=== PATIENT | female | born 1945 | race Caucasian/White ===

== ENCOUNTER 2016-08-25 21:49 | Emergency (ER) | payer MEDICARE ==
[~2016-08-25] VITALS: Ht 162.6 cm; Wt 70.0 kg
[~2016-08-25 21:49] MED LIST: ASPI81CH30 PO; COZA100T PO; FERR325T PO; FOLI1TAB PO; GLIM2 PO; GLUCTAB PO; MEVA40TA6 PO; NORV2.5T11 PO; OMEG600C2 PO; PYRI25TA9 PO; TAB-TAB PO; TRAD5TAB PO; VITA100T15 PO
[2016-08-25 21:50] VITALS: BP 256/118; PULSE 76; RESP 20; TEMP 98.5; O2SAT 99
[2016-08-25 22:18] VITALS: BP 232/110; PULSE 78; RESP 18; TEMP 98.1; O2SAT 99
[2016-08-25] MEDS ORDERED: KETOROLAC TROMETHAMINE 30 MG/ML (IVP) VIAL IV PUSH ONE (22:30)
[2016-08-25] MEDS ORDERED: SODIUM CHLORIDE 0.9% FLUSH 10 ML FLUSH IVF PRN (22:30)
[2016-08-25 22:31] VITALS: RESP 18; O2SAT 99
--- NOTE | 2016-08-25 22:36 | PD ---
HPI Chief Complaint: Hypertension Time Seen by Provider: 22:26 Travel History International Travel<30 days: No Contact w/Intl Traveler<30days: No Traveled to known affect area: No History of Present Illness HPI 71 y/o female presents with elevated blood pressure this evening. She states it was in the 200s over 100s at home when she checked it. She states she checked it can she had a frontal headache. She states she's had this before when her blood pressure gets elevated. She states she was taken off her losartan and Norvasc because after her carotid surgery in July of this year her blood pressure actually went to low. She states just yesterday she checked her blood pressure and it was normal on her metoprolol only. She states her systolic was in the 110 range. She states that she has no other concurrent complaints at this time including numbness, chest pain, shortness breath or other acute concerns. She denies thunderclap onset of headache. PFSH Past Medical History Anxiety: Yes High Cholesterol: Yes Diabetes: Yes Patient Takes Glucophage: No Diminished Hearing: No Hypertension: Yes Tetanus Vaccination: < 5 Years Influenza Vaccination: No Menopausal: Yes Past Surgical History Cardiac Surgery: Yes Hysterectomy: Yes Other Surgery: Yes (carotid endarectomy) Social History Alcohol Use: No Tobacco Use: No Substance Use: No Allergies-Medications (Allergen,Severity, Reaction): Coded Allergies: Ancef (Verified Allergy, Severe, 08/25/16) Cardizem (Verified Allergy, Severe, 08/25/16) Contrast Media (Verified Allergy, Severe, 08/25/16) Vancomycin (Verified Allergy, Severe, 08/25/16) Reported Meds & Prescriptions Reported Meds & Active Scripts Active Reported Aspir-Low (Aspirin) 81 Mg Tabdr 81 Mg PO DAILY @ 1300 B-12 (Cyanocobalamin) 1,000 Mcg Cap 1,000 Mcg PO DAILY Ferrous Sulfate 325 Mg Tab 325 Mg PO DAILY Glimepiride 2 Mg Tab 2 Mg PO AC DINNER Take with breakfast or first main meal Glimepiride 4 Mg Tab 4 Mg PO AC BREAKFAST Take with breakfast or first main meal Pyridoxine (Pyridoxine HCl) 100 Mg Tab 100 Mg PO DAILY Plavix (Clopidogrel Bisulfate) 75 Mg Tab 75 Mg PO DAILY @ 1300 D 1000 (Cholecalciferol) 1,000 Unit Tab 3,000 Units PO DAILY Coq-10 (Coenzyme Q10 (Ubidecarenone)) 100 Mg Cap 100 Mg PO DAILY@ 1500 Levothyroxine (Levothyroxine Sodium) 75 Mcg Tab 75 Mcg PO DAILY Metoprolol Tartrate 50 Mg Tab 50 Mg PO BID Probiotic (Lactobacillus Acidophilus) 1 Cap Cap 2 Cap PO DAILY Crestor (Rosuvastatin Calcium) 5 Mg Tab 5 Mg PO Q3D @ 1200 Review of Systems Except as stated in HPI: all other systems reviewed are Neg Physical Exam Narrative GENERAL: Well-nourished, well-developed patient. SKIN: Warm and dry. HEAD: Normocephalic and atraumatic. EYES: No injection or drainage. pupils equal ENT: No nasal drainage noted. NECK: Supple, trachea midline. CARDIOVASCULAR: Regular rate and rhythm RESPIRATORY: Breath sounds equal bilaterally. No accessory muscle use. GASTROINTESTINAL: Abdomen soft, non-tender, nondistended. EXTREMITIES: No edema. NEUROLOGICAL: Awake and alert. Motor and sensory grossly within normal limits. Normal speech. 5/5 in all 4 extremities Data Data Last Documented VS Vital Signs Date Time Temp Pulse Resp B/P Pulse Ox O2 Delivery O2 Flow Rate FiO2 08/26/16 02:28 90 18 168/70 99 08/26/16 01:03 Room Air 08/25/16 22:18 98.1 Orders Basic Metabolic Panel (Bmp) (08/25/16 22:26) Complete Blood Count With Diff (08/25/16 22:26) Prothrombin Time / Inr (Pt) (08/25/16 22:26) Act Partial Throm Time (Ptt) (08/25/16 22:26) Ct Brain W/O Iv Contrast(Rout) (08/25/16 22:26) Iv Access Insert/Monitor (08/25/16 22:26) Ecg Monitoring (08/25/16 22:26) Oximetry (08/25/16 22:26) Sodium Chloride 0.9% Flush (Ns Flush) (08/25/16 22:30) Ketorolac Inj (Toradol Inj) (08/25/16 22:30) Labs Laboratory Tests Test 08/25/16 22:32 White Blood Count 6.3 TH/MM3 Red Blood Count 3.91 MIL/MM3 Hemoglobin 11.0 GM/DL Hematocrit 33.2 % Mean Corpuscular Volume 84.9 FL Mean Corpuscular Hemoglobin 28.3 PG Mean Corpuscular Hemoglobin 33.3 % Concent Red Cell Distribution Width 13.0 % Platelet Count 205 TH/MM3 Mean Platelet Volume 9.4 FL Neutrophils (%) (Auto) 51.0 % Lymphocytes (%) (Auto) 37.7 % Monocytes (%) (Auto) 6.6 % Eosinophils (%) (Auto) 3.3 % Basophils (%) (Auto) 1.4 % Neutrophils # (Auto) 3.2 TH/MM3 Lymphocytes # (Auto) 2.4 TH/MM3 Monocytes # (Auto) 0.4 TH/MM3 Eosinophils # (Auto) 0.2 TH/MM3 Basophils # (Auto) 0.1 TH/MM3 CBC Comment DIFF FINAL Differential Comment Prothrombin Time 10.6 SEC Prothromb Time International 1.0 RATIO Ratio Activated Partial 26.1 SEC Thromboplast Time Sodium Level 136 MEQ/L Potassium Level 5.4 MEQ/L Chloride Level 104 MEQ/L Carbon Dioxide Level 24.2 MEQ/L Anion Gap 8 MEQ/L Blood Urea Nitrogen 18 MG/DL Creatinine 1.39 MG/DL Estimat Glomerular Filtration 37 ML/MIN Rate Random Glucose 176 MG/DL Calcium Level 9.3 MG/DL MDM Medical Decision Making Medical Screen Exam Complete: Yes Emergency Medical Condition: Yes Medical Record Reviewed: Yes (pmh confirmed) Interpretation(s) CBC & BMP Diagram 08/25/16 22:32 Last [address] 08/25/16 2226 Signed Impressions: Service Date/Time: Thursday, August 25, 2016 23:25 - CONCLUSION: Slight atrophic and small vessel ischemic changes without any evidence for acute hemorrhage or mass effect. Lesley Lyman MD Differential Diagnosis hypertensive urgency, acute renal failure, tension, migraine... Narrative Course will check labs, ct and dose with pain control and reeval ed workup no acute, bp improved with pain control, Patient denies any new complaints and states that they are feeling better. Patient happy with care, all questions answered. Patient knows that follow up is incumbent on them and to return to the emergency room immediately if new or worsening symptoms develop. Patient given strict return precautions, vitals reviewed and are normal , agrees to further workup as an outpatient. Diagnosis Primary Impression: Cephalalgia Qualified Code: R51 - Acute nonintractable headache, unspecified headache type Additional Impression: Elevated blood pressure reading Patient Instructions: General Instructions Additional Instructions: return as needed, keep blood pressure log, follow with primary tommorrow, if bp remains elevated on next check in morning take your home norvasc Med/Other Pt SpecificInfo: No Change to Meds Disposition: 01 DISCHARGE HOME Condition: Stable Senia Herrera MD August 25, 2016 22:36
[2016-08-25 22:42] LABS: AUTOMATED NEUTROPHIL # 3.2 TH/MM3 (1.8-7.7); BASOPHIL # 0.1 TH/MM3 (0-0.2); BASOPHIL % 1.4 % (0.0-2.0); EOSINOPHIL # 0.2 TH/MM3 (0-0.4); EOSINOPHIL % 3.3 % (0.0-4.0); HEMATOCRIT 33.2 % (35.0-46.0); HEMO FLAGS DIFF FINAL; LYMPH % 37.7 % (9.0-44.0); LYMPHOCYTE # 2.4 TH/MM3 (1.0-4.8); MEAN CELL VOLUME 84.9 FL (80.0-100.0); MEAN CORPUSCULAR HEMOGLOBIN 28.3 PG (27.0-34.0); MEAN CORPUSCULAR HGB CONC 33.3 % (32.0-36.0); MONO % 6.6 % (0.0-8.0); PLATELET COUNT 205 TH/MM3 (150-450); RED BLOOD COUNT 3.91 MIL/MM3 (4.00-5.30); WHITE BLOOD COUNT 6.3 TH/MM3 (4.0-11.0)
[2016-08-25] MEDS ORDERED: LACTCAP8 PO (22:49)
[2016-08-25] MEDS ORDERED: ROSU5 PO (22:49)
[2016-08-25] MEDS ORDERED: METO50TA PO (22:49)
[2016-08-25] MEDS ORDERED: COQ-100C2 PO (22:49)
[2016-08-25] MEDS ORDERED: LEVO75TA3 PO (22:49)
[2016-08-25] MEDS ORDERED: GLIM4TAB PO (22:55)
[2016-08-25] MEDS ORDERED: GLIM2TAB PO (22:55)
[2016-08-25] MEDS ORDERED: ASPI81TA19 PO (22:55)
[2016-08-25] MEDS ORDERED: FERR325T PO (22:55)
[2016-08-25] MEDS ORDERED: PYRI100T4 PO (22:55)
[2016-08-25] MEDS ORDERED: PLAV75TA29 PO (22:55)
[2016-08-25] MEDS ORDERED: VITA1000 PO (22:55)
[2016-08-25] MEDS ORDERED: CYAN100017 PO (22:55)
[2016-08-25 22:59] LABS: APTT (PATIENT) 26.1 SEC (24.3-30.1); PROTHROMBIN TIME - PATIENT 10.6 SEC (9.8-11.6)
[2016-08-25 23:04] VITALS: BP 210/93; PULSE 68; RESP 18; O2SAT 99
[2016-08-25 23:23] LABS: BICARBONATE 24.2 MEQ/L (21.0-32.0); POTASSIUM 5.4 MEQ/L (3.5-5.1)
--- NOTE | 2016-08-25 23:37 | RADRPT ---
EXAM DATE/TIME: 08/25/2016 23:25 [facility] COMPARISON: No previous studies available for comparison. INDICATIONS : Cephalgia and elevated blood pressure. RADIATION DOSE: 56.77 CTDIvol (mGy) MEDICAL HISTORY : Hypertension. Cardiovascular disease Diabetes mellitus type 2. SURGICAL HISTORY : Hysterectomy. ENCOUNTER: Initial ACUITY: 1 day PAIN SCALE: 6/10 LOCATION: cranial TECHNIQUE: Multiple contiguous axial images were obtained of the head. Using automated exposure control and adj ustment of the mA and/or kV according to patient size, radiation dose was kept as low as reasonably a chievable to obtain optimal diagnostic quality images. FINDINGS: There is no evidence for intracranial hemorrhage, mass effect, mass lesions, or edema. The visualize d bony structures appear intact. Slight degree of brain atrophy is seen. Slight periventricular whit e matter changes are seen nonspecific mostly consistent with chronic small vessel ischemic changes. There are no signs of acute infarction for technique. CONCLUSION: Slight atrophic and small vessel ischemic changes without any evidence for acute hemorrhage or mass effect. Lesley Lyman MD on August 25, 2016 at 23:35 Board Certified Radiologist. This report was verified electronically.
[2016-08-26 00:08] VITALS: BP 197/81
[2016-08-26 01:03] VITALS: BP 170/75; PULSE 53; RESP 18; O2SAT 98
[2016-08-26 02:28] VITALS: BP 168/70
--- NOTE | 2016-08-26 13:12 | EKG ---
Date Performed: 08/25/2016 Time Performed: 22:20:22 PTAGE: 71 years EKG: Sinus rhythm NONSPECIFIC T-WAVE ABNORMALITY BORDERLINE ECG Compared to prior tracing no significant change PREVIOUS TRACING : 03/23/2012 00.02 DOCTOR: Rommel Fuentes Interpretating Date/Time 08/26/2016 13:10:28
== END 2016-08-26 02:43 | disposition home or self-care (01) ==
LOC: NEPC 21:49
DX: R51 Headache (principal); I10 Essential (primary) hypertension; R94.31 Abnormal electrocardiogram [ECG] [EKG]; E11.9 Type 2 diabetes mellitus without complications; E78.00 Pure hypercholesterolemia, unspecified; Z79.84 Long term (current) use of oral hypoglycemic drugs; Z86.59 Personal history of other mental and behavioral disorders
CPT/HCPCS: 70450; 80048; 85025; 85610; 85730; 93005; 96374; 99284; J1885